=== PATIENT | female | born 1975 | race Caucasian/White ===

== ENCOUNTER 2023-09-04 18:18 | Emergency (ER) | payer OTHER ==
[~2023-09-04] VITALS: Ht 167.6 cm; Wt 102.1 kg
[2023-09-04 18:59] VITALS: PULSE 78; RESP 18; TEMP 97.8
[2023-09-04] MEDS ORDERED: IBUPROFEN200 MG PO (19:45)
[2023-09-04] MEDS ORDERED: CYCLOBENZAPRINE5 MG PO (19:45)
[2023-09-04] MEDS: DEXAMETHASONE SOD PHOS INJ 4 MG/ML SDV IM ONE (19:50)
[2023-09-04 19:57] VITALS: BP 147/92; PULSE 78; RESP 18; TEMP 97.8; O2SAT 99
== END 2023-09-04 19:57 | disposition home or self-care (01) ==
LOC: FSED 18:37
DX: M54.41 Lumbago with sciatica, right side (principal); E66.9 Obesity, unspecified; Z68.30 Body mass index [BMI] 30.0-30.9, adult; R73.03 Prediabetes; J45.909 Unspecified asthma, uncomplicated; M48.061 Spinal stenosis, lumbar region without neurogenic claudication
CPT/HCPCS: 96372; 99282; J1100